=== PATIENT | female | born 1950 | race Caucasian/White ===

== ENCOUNTER 2018-12-22 07:17 | Day surgery (SDC) | payer OTHER ==
[~2018-12-22] VITALS: Ht 160 cm; Wt 77.1 kg
[2018-12-22] MEDS ORDERED: ORE25 PO (09:06)
[2018-12-22] MEDS ORDERED: METO50TE2 PO (09:06)
[2018-12-22] MEDS ORDERED: LOSA25TA43 PO (09:06)
[2018-12-22] MEDS ORDERED: LIDOCAINE 2% 100 MG/5 ML UJET TP ONE (09:53)
[2018-12-22] MEDS ORDERED: fentaNYL 0.05 MG/ML VIAL ONE (10:20)
[2018-12-22] MEDS ORDERED: MIDAZOLAM 2 MG/2 ML VIAL ONE (10:21)
[2018-12-22] MEDS ORDERED: diphenhydrAMINE 50 MG/ML VIAL ONE (10:21)
== END 2018-12-22 12:00 | disposition home or self-care (01) ==
LOC: MOR 07:17 → MMU 07:18 → MOR 12:00
PROVIDERS: ATTEND Surgery
DX: K64.8 Other hemorrhoids (principal); K64.4 Residual hemorrhoidal skin tags; K64.5 Perianal venous thrombosis; K57.30 Diverticulosis of large intestine without perforation or abscess without bleeding; I10 Essential (primary) hypertension; K63.89 Other specified diseases of intestine; M19.90 Unspecified osteoarthritis, unspecified site; M81.0 Age-related osteoporosis without current pathological fracture; Z98.51 Tubal ligation status; Z98.890 Other specified postprocedural states; Z96.651 Presence of right artificial knee joint; Z79.899 Other long term (current) drug therapy
CPT/HCPCS: 45378; J1200; J2250; J3010; J7120